=== PATIENT | female | born 1960 | race Caucasian/White ===

== ENCOUNTER → 2016-03-07 | Outpatient (CLI) | payer OTHER ==
[2016-03-07 08:01] LABS: BASOPHILS # (AUTO) 0.02 10*3/UL; BASOPHILS % (AUTO) 0.4 % (0-1); EOSINOPHILS % (AUTO) 4.7 % (0-8); HEMOGLOBIN 14.5 g/dL (12.0-16.0); IMM GRAN % (AUTO) 0.2 % (0-5); IMM GRAN# (AUTO) 0.01 10*3/UL; LYMPHOCYTES % (AUTO) 32.5 % (10-50); MEAN CORPUSCULAR HEMOGLOBIN 31.1 PG (27-31); MEAN CORPUSCULAR HGB CONC 33.7 g/dL (33-37); MEAN PLATELET VOLUME 9.1 FL (7.4-12.2); MONOCYTES # (AUTO) 0.52 10*3/UL (0.3-0.8); MONOCYTES % (AUTO) 10.6 % (5-15); NEUTROPHILS # (AUTO) 2.54 10*3/UL; NEUTROPHILS % (AUTO) 51.6 % (50-80); RDW COEFFICIENT OF VARIATION 11.9 % (11.5-14.5); RED BLOOD COUNT 4.66 10^6/uL (4.20-5.40); WHITE BLOOD COUNT 4.92 10^3/uL (4.8-10.8)
[2016-03-07 08:11] LABS: PLATELET MORPHOLOGY COMMENT NORMAL MORPHOLOGY (NORM)
[2016-03-07 08:30] LABS: ASPARTATE AMINO TRANSFERASE 41 IU/L (8-39); BLOOD UREA NITROGEN 12 mg/dL (7-22); BUN/CREATININE RATIO 17.14 (6-20); CALCIUM 10.2 mg/dL (8.7-10.7); CHLORIDE 104 meq/L (98-112); CREATININE 0.7 mg/dL (0.50-1.20); EST GLOMERULAR FILTRATION > 60 (>60 ml/min/1.73m(2)); GLUCOSE 76 mg/dL (78-110); POTASSIUM 4.2 meq/L (3.8-5.2)
[2016-03-07 08:49] LABS: BILIRUBIN,TOTAL 1.3 mg/dL (0.3-1.2); SODIUM 142 meq/L (135-145); TRIGLYCERIDES 79 mg/dL (44-200)
[2016-03-07 09:03] LABS: HDL CHOLESTEROL 146 mg/dL (40-150)
== END ==
LOC: LAB 07:45
PROVIDERS: ATTEND Family Medicine
DX: Z00.00 Encounter for general adult medical examination without abnormal findings (principal)
CPT/HCPCS: 36415; 80053; 80061; 82306; 84443; 85025

== ENCOUNTER → 2016-06-27 | Outpatient (CLI) | payer OTHER ==
--- NOTE | 2016-06-27 12:18 | EKG ---
[address] [address] Measurements Intervals [place] Rate: 56 P: 76 [place]: 154 QRS: 56 QRSD: 88 T: 47 QT: 423 QTc: 415 Interpretive Statements SINUS RHYTHM No previous ECG available for comparison Electronically Signed On 06-27-16 13:47:17 MDT by Teddy Garvey [email or web address]
[2016-06-27 13:28] LABS: BLOOD UREA NITROGEN 13 mg/dL (7-22); BUN/CREATININE RATIO 18.57 (6-20); CALCIUM 10.1 mg/dL (8.7-10.7); EST GLOMERULAR FILTRATION > 60 (>60 ml/min/1.73m(2)); SERUM ALBUMIN 4.8 g/dL (3.5-4.8)
[2016-06-27 13:54] LABS: BILIRUBIN,URINE NEGATIVE (NEG); COLOR,URINE YELLOW; GLUCOSE, URINE (UA) NEGATIVE (NEG); NITRATE,URINE NEGATIVE (NEG); OCCULT BLOOD,URINE NEGATIVE (NEG); PH,URINE 6.5 (5.0-8.5); PROTEIN,URINE NEGATIVE (NEG)
[2016-06-27 14:19] LABS: CLARITY,URINE CLEAR (CLEAR)
[2016-06-27 14:21] LABS: RBC,URINE 0-3 /hpf; SQUAMOUS EPITHELIAL CELL,UR FEW; URINE SAMPLE TYPE CLEAN CATCH URINE
[2016-06-27 14:23] LABS: BASOPHILS # (AUTO) 0.02 10*3/UL; BASOPHILS % (AUTO) 0.3 % (0-1)
[2016-06-27 15:00] LABS: EOSINOPHILS # (AUTO) 0.16 10*3/UL; EOSINOPHILS % (AUTO) 2.6 % (0-8); HEMATOCRIT 44.4 % (37.0-47.0); HEMOGLOBIN 15.1 g/dL (12.0-16.0); LYMPHOCYTES # (AUTO) 1.75 10*3/uL; MEAN CORPUSCULAR HEMOGLOBIN 31.6 PG (27-31); MEAN CORPUSCULAR VOLUME 92.9 FL (81-99); MONOCYTES % (AUTO) 8.2 % (5-15); NEUTROPHILS # (AUTO) 3.65 10*3/UL; RED BLOOD COUNT 4.78 10^6/uL (4.20-5.40)
[2016-06-27 15:11] LABS: PLATELET MORPHOLOGY COMMENT NORMAL MORPHOLOGY (NORM); RBC MORPHOLOGY COMMENT NORMAL MORPHOLOGY (NORM); WBC MORPHOLOGY COMMENT NORMAL MORPHOLOGY (NORM)
--- NOTE | 2016-06-27 15:25 | DI ---
PA /LATERAL CHEST X-RAY, 06/27/2016 12:04 PM : Clinical History: Preoperative examination Previous Exam: None at this facility. There is no acute soft tissue or bony abnormality. Heart size is normal. Lungs are clear. Mediastinal structures are normal. There are no pulmonary nodules. IMPRESSION: Normal chest x-ray.
== END ==
LOC: MOB LAB 12:01
PROVIDERS: ATTEND Family Medicine
DX: Z01.812 Encounter for preprocedural laboratory examination (principal); Z01.810 Encounter for preprocedural cardiovascular examination; Z01.818 Encounter for other preprocedural examination
CPT/HCPCS: 36415; 71020; 80053; 81001; 85025; 87088; 93005; 93010

== ENCOUNTER → 2016-07-09 | Outpatient (CLI) | payer OTHER ==
[2016-07-09 08:57] LABS: BLOOD UREA NITROGEN 13 mg/dL (7-22); BUN/CREATININE RATIO 18.57 (6-20); CALCIUM 9.7 mg/dL (8.7-10.7); EST GLOMERULAR FILTRATION > 60 (>60 ml/min/1.73m(2)); SERUM ALBUMIN 4.5 g/dL (3.5-4.8)
== END ==
LOC: LAB 08:26
PROVIDERS: ATTEND Surgery Plastic and Reconstructive Surgery
DX: R94.5 Abnormal results of liver function studies (principal)
CPT/HCPCS: 36415; 80053